=== PATIENT | female | born 1990 | race Caucasian/White ===

== ENCOUNTER 2018-03-07 09:28 | Emergency (ER) | payer BC ==
[2018-03-07] MEDS ORDERED: Haloperidol Lactate 5 mg/mL 1mL Vial IM STA (09:36)
[2018-03-07] MEDS ORDERED: Haloperidol Lactate 5 mg/mL 1mL Vial ONE (09:38)
[2018-03-07] MEDS ORDERED: Lactated Ringer 1,000 ML IV ONE ×2 (09:50→14:11)
[2018-03-07 10:15] LABS: % BASOPHILS 0.7 % (0.0-2.0); % EOSINOPHILS 2.8 % (0.0-5.0); % MONOCYTES 5.8 % (2.0-10.0); % NEUTROPHILS 67.7 % (40.0-80.0); BASOPHILE ABSOLUTE 0.1 Th/cumm (0-0.2); EOSINOPHILE ABSOLUTE 0.2 Th/cmm (0.1-0.4); HEMATOCRIT 41.3 % (41.0-60); HEMOGLOBIN 13.5 gm/dL (12-16); LYMPHOCYTE ABSOLUTE 1.8 Th/cmm (1.5-3.0); MEAN CELL VOLUME 86.2 fl (81-100); MEAN CORPUSCULAR HEMOGLOBIN 28.2 pg (27.0-31.0); MEAN CORPUSCULAR HGB CONC 32.8 pg (28.0-36.0); MEAN PLATELET VOLUME 8.5 fl; MONOCYTE ABSOLUTE 0.5 Th/cmm (0.3-1.0); NEUTROPHILE ABSOLUTE 5.3 Th/cmm (1.8-8.0); PLATELET COUNT 300 Th/cmm (150-400); RED BLOOD COUNT 4.79 Mil/cmm (3.80-5.10); RED CELL DISTRIBUTION WIDTH 12.5 % (11.5-20.0); WHITE BLOOD COUNT 7.9 Th/cmm (4.8-10.8)
[2018-03-07 10:25] LABS: ALB/GLOB RATIO 1.1 (1.0-1.8); ALKALINE PHOSPHATASE 65 U/L (34-104); ANION GAP 17.8 (7.0-16.0); BUN - UREA NITROGEN 14 mg/dL (7-25); CALCIUM SERUM 9.2 mg/dL (8.6-10.3); CARBON DIOXIDE 20.3 mEq/L (21.0-31.0); CHLORIDE 108 mEq/L (98-107); CREATININE - SERUM 0.6 mg/dL (0.6-1.2); GFR AFRICAN-AMERICAN > 60.0 ml/min (>90); GFR NON AFRICAN-AMERICAN > 60.0 ml/min; GLUCOSE 99 mg/dL (70-105); PHOSPHOROUS 3.9 mg/dL (2.5-5.0); POTASSIUM SERUM 3.1 mEq/L (3.5-5.1); SGOT 16 U/L (13-39); SGPT/ALT 15 U/L (7-52); SODIUM SERUM 143 mEq/L (136-145); TOTAL PROTEIN,SERUM 7.6 gm/dL (6.0-8.3)
[2018-03-07] MEDS ORDERED: Potassium Chloride 20 mEq ER Tab PO ONE ×2 (11:11→11:43)
[2018-03-07 11:21] LABS: URINE SOURCE CATH
[2018-03-07 11:28] LABS: URINE BILIRUBIN NEGATIVE (NEGATIVE); URINE BLOOD SMALL (NEGATIVE); URINE GLUCOSE (UA) NEGATIVE (NEGATIVE); URINE KETONE NEGATIVE (NEGATIVE); URINE LEUKOCYTE ESTERASE SMALL (NEGATIVE); URINE MICROSCOPIC INDICATED? YES; URINE NITRATE NEGATIVE (NEGATIVE); URINE PH 6.5 (4.6 - 8.0); URINE PROTEIN TRACE mg/dL (NEGATIVE); URINE UROBILINOGEN 0.2 E.U./dL (0.2 - 1.0)
[2018-03-07 11:39] LABS: URINE COLOR YELLOW
[2018-03-07 11:40] LABS: URINE BACTERIA NONE SEEN /hpf (NONE SEEN); URINE EPITHELIAL CELLS OCCASIONAL /lpf (FEW)
[2018-03-07 11:41] LABS: URINE CLARITY SLIGHTLY HAZY (CLEAR)
[2018-03-07] MEDS ORDERED: Sulfamethoxazole/TMP 800/160mg Tab PO ONE (11:43)
[2018-03-07] MEDS ORDERED: Sulfamethoxazole/TMP 800/160mg Tab ONE (12:10)
[2018-03-07 12:13] LABS: AMPHETAMINE URINE NEGATIVE (NEGATIVE); BARBITURATES URINE NEGATIVE (NEGATIVE); BENZODIAZEPINES QUAL URINE NEGATIVE (NEGATIVE); CANNABINOID THC NEGATIVE (NEGATIVE); COCAINE METABOLITE QUAL URINE NEGATIVE (NEGATIVE); METHADONE URINE NEGATIVE (NEGATIVE); METHAMPHETAMINES QUAL URINE NEGATIVE (NEGATIVE); OPIATES (MORPHINE) QUAL. URINE NEGATIVE (NEGATIVE); PHENCYCLIDINE (PCP) URINE NEGATIVE (NEGATIVE); TRICYCLICS (TCA) QUAL. URINE NEGATIVE (NEGATIVE)
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
[2018-03-08] MEDS ORDERED: Maalox 30 mL Cup PO ONE (02:14)
[2018-03-08] MEDS ORDERED: Maalox 30 mL Cup ONE (02:17)
[2018-03-08] MEDS ORDERED: Sulfamethoxazole/TMP 800/160mg Tab PO ONE (20:19)
[2018-03-08] MEDS ORDERED: Sulfamethoxazole/TMP 800/160mg Tab ONE (20:21)
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
== END 2018-03-08 21:31 ==
LOC: ER 09:28
DX: E87.6 Hypokalemia (principal); N39.0 Urinary tract infection, site not specified; R45.1 Restlessness and agitation; J44.9 Chronic obstructive pulmonary disease, unspecified; F31.9 Bipolar disorder, unspecified; Z91.89 Other specified personal risk factors, not elsewhere classified
CPT/HCPCS: 99285; 96372 ×3; 36415; 80307; 85025; 87086; 81001; 80320; 84703; 83735; 84100; 80053; J2060; J1200; J1630; Z7610